=== PATIENT | male | born 1955 | race Caucasian/White ===

== ENCOUNTER 2016-11-10 12:22 | Emergency (ER) | payer MEDICARE, MEDICAID ==
[~2016-11-10] VITALS: Ht 175.3 cm; Wt 70.0 kg
[~2016-11-10 12:22] MED LIST: DICLOXACILLIN; SIMVASTATIN; [UNRECOGNIZED DRUG - OTHER]
[2016-11-10 13:04] LABS: BASOPHILS % 0.5 % (0.0-2.0); EOSINOPHILS % 0.8 % (0.0-5.0); HEMATOCRIT. 41.2 % (42.0-52.0); HEMOGLOBIN. 13.6 g/dL (14.0-18.0); LYMPHOCYTES % 8.5 % (20.0-50.0); MEAN CORPUSCULAR HGB CONC 33.1 g/dL (31.0-37.0); MEAN CORPUSCULAR VOLUME 87.8 fL (80.0-94.0); MEAN PLATELET VOLUME 7.8 fl (7.4-10.4); NEUTROPHILS % 83.2 % (40.0-76.0); PLATELET 279 x1000/uL (130-400); RED BLOOD CELL COUNT 4.69 mill/uL (4.7-6.1); RED CELL DISTRIBUTION WIDTH 13.1 % (11.6-14.6); WHITE BLOOD COUNT 11.1 x1000/uL (4.5-11.0)
[2016-11-10 13:12] LABS: INR 1.1; PROTHROMBIN TIME 11.8 sec
[2016-11-10 13:20] LABS: ALANINE AMINOTRANSFERASE 24 IU/L (13-61); ALBUMIN 3.6 g/dL (3.4-5.0); ANION GAP 15; CARBON DIOXIDE 23 mEq/L (21-32); CHLORIDE 107 mEq/L (98-107); INDEX HEMOLYSI 1 (1-3); INDEX ICTERIC 1 (1-4); INDEX LIPEMIC 1 (1-3); UREA NITROGEN BLOOD 24 mg/dL (7-21); eGFR 56 mL/min (>60)
[2016-11-10] MEDS ORDERED: ACETAMINOPHEN WITH CODEINE 300/30MG TABLET PO ONE (13:45)
[2016-11-10] MEDS ORDERED: LIDOCAINE HCL 1% 20ML VIAL (Pyxis) INJ MC ONE (15:00)
[2016-11-10] MEDS ORDERED: TETANUS, DIPHTHERIA, PERTUSSIS VAC/PF 0.5ML (>7YR OLD) IM ONE (15:00)
[2016-11-10 20:00] VITALS: BP 136/77
== END 2016-11-10 21:00 | disposition home or self-care (01) ==
LOC: ER 12:38
DX: S01.01XA Laceration without foreign body of scalp, initial encounter (principal); S00.83XA Contusion of other part of head, initial encounter; X95.9XXA Assault by unspecified firearm discharge, initial encounter; Y93.89 Activity, other specified; Y92.9 Unspecified place or not applicable; Y99.8 Other external cause status
CPT/HCPCS: 12001; 36415; 70450; 70486; 71010; 73590; 80053; 85025; 85610; 90471; 90715; 99285; J3490

== ENCOUNTER 2016-11-26 06:46 | Emergency (ER) | payer MEDICARE, MEDICAID ==
[~2016-11-26] VITALS: Ht 172.7 cm; Wt 77.0 kg
[2016-11-26] MEDS ORDERED: TETANUS, DIPHTHERIA, PERTUSSIS VAC/PF 0.5ML (>7YR OLD) IM ONE (07:45)
[2016-11-26 08:13] LABS: BASOPHILS % 0.8 % (0.0-2.0); EOSINOPHILS % 2.4 % (0.0-5.0); HEMATOCRIT. 39.2 % (42.0-52.0); HEMOGLOBIN. 13.3 g/dL (14.0-18.0); MEAN CORPUSCULAR HEMOGLOBIN 29.5 pg (28.0-32.0); MEAN CORPUSCULAR HGB CONC 33.8 g/dL (31.0-37.0); MEAN CORPUSCULAR VOLUME 87.4 fL (80.0-94.0); MEAN PLATELET VOLUME 7.4 fl (7.4-10.4); MONOCYTES % 8.6 % (2.0-8.0); NEUTROPHILS % 74.2 % (40.0-76.0); PLATELET 297 x1000/uL (130-400); RED BLOOD CELL COUNT 4.49 mill/uL (4.7-6.1); RED CELL DISTRIBUTION WIDTH 13.2 % (11.6-14.6); WHITE BLOOD COUNT 7.2 x1000/uL (4.5-11.0)
[2016-11-26 08:20] LABS: INR 1.1; PROTHROMBIN TIME 10.9 sec
[2016-11-26 08:21] LABS: CHLORIDE 105 mEq/L (98-107); INDEX HEMOLYSI 1 (1-3); INDEX ICTERIC 1 (1-4); INDEX LIPEMIC 1 (1-3)
[2016-11-26 08:22] LABS: ALBUMIN 3.4 g/dL (3.4-5.0); ANION GAP 10; CALCIUM 8.1 mg/dL (8.5-10.1); CARBON DIOXIDE 28 mEq/L (21-32); UREA NITROGEN BLOOD 19 mg/dL (7-21)
[2016-11-26 08:30] LABS: ALANINE AMINOTRANSFERASE 29 IU/L (13-61); CREATINE KINASE 139 IU/L (39-308); ETHANOL BLOOD < 10 mg/dL; TROPONIN I < 0.02 ng/mL (0.00-0.04); eGFR > 60 mL/min (>60)
[2016-11-26 08:33] LABS: AMMONIA 35 uMol/L (<32)
[2016-11-26 09:50] LABS: BG BASE EXCESS -3.6 mmol/L (-2.0-2.0); BG CARBOXYHEMOGLOBIN 0.7 % (0.5-1.5); BG DEOXYHEMOGLOBIN 4.1 % (0.0-5.0); BG FRACTION INSPIRED OXYGEN 21; BG METHEMOGLOBIN 0.1 % (0.0-1.5); BG OXYGEN SATURATION 95.9 % (92.0-98.5); BG OXYHEMOGLOBIN 95.1 % (94.0-97.0); BG PCO2 36.7 mmHg (35.0-45.0); BG PH 7.376 (7.350-7.450); BG PO2 81.2 mmHg (75.0-100.0); BG SAMPLE SITE LEFT BRACHIAL; BG TOTAL HEMOGLOBIN 13.5 g/dL (12.0-18.0); BG VENT MODE ROOM AIR
[2016-11-26 10:45] LABS: CLARITY URINE CLOUDY (CLEAR); COLOR URINE YELLOW (YELLOW); GLUCOSE URINE NEGATIVE (NEGATIVE); KETONES URINE NEGATIVE (NEGATIVE); LEUKOCYTE ESTERASE URINE TRACE (NEGATIVE); NITRITE URINE NEGATIVE (NEGATIVE); OCCULT BLOOD URINE NEGATIVE (NEGATIVE); PH URINE 7.5 (4.5-8.0); PROTEIN URINE NEGATIVE (NEGATIVE); SPECIFIC GRAVITY URINE 1.017 (1.005-1.030)
[2016-11-26 11:11] LABS: RBC URINE NONE SEEN /hpf (0-2); SQUAMOUS EPITHELIAL CELL URINE NONE SEEN /lpf (RARE/1+); WBC URINE 0-2 /hpf (0-2)
[2016-11-26 11:12] LABS: AMORPHOUS SEDIMENT URINE 1+ /lpf; BACTERIA URINE 2+
[2016-11-26 11:25] LABS: *AMPHETAMINES SCREEN URINE PRESUMTIVE POSITIVE (NEGATIVE); *BARBITURATES SCREEN URINE NEGATIVE (NEGATIVE); *BENZODIAZEPINES SCREEN URINE NEGATIVE (NEGATIVE); *COCAINE SCREEN URINE NEGATIVE (NEGATIVE); CANNABINOID URINE SCREEN NEGATIVE (NEGATIVE); ECSTASY MDMA SCREEN URINE NEGATIVE (NEGATIVE); METHADONE URINE SCREEN NEGATIVE (NEGATIVE); OPIATES URINE SCREEN NEGATIVE (NEGATIVE); PHENCYCLIDINE URINE SCREEN NEGATIVE (NEGATIVE)
[2016-11-26 12:00] VITALS: BP 145/83
== END 2016-11-26 14:30 | disposition left against medical advice (07) ==
LOC: ER 06:54
DX: T43.621A Poisoning by amphetamines, accidental (unintentional), initial encounter (principal); S00.81XA Abrasion of other part of head, initial encounter; G92 Toxic encephalopathy; V47.0XXA Car driver injured in collision with fixed or stationary object in nontraffic accident, initial encounter; Y93.89 Activity, other specified; Y92.488 Other paved roadways as the place of occurrence of the external cause
CPT/HCPCS: 36415; 36600; 70450; 71010; 72125; 80053; 80305; 81001; 82140; 82375; 82550; 82805; 82962; 83605; 84443; 84484; 85025; 85610; 86850; 86900; 86901; 90471; 90715; 99291; G0482; J7120; A4315

== ENCOUNTER 2019-04-06 11:43 | Emergency (ER) | payer BC, MEDICAID ==
[~2019-04-06] VITALS: Ht 175.3 cm; Wt 75.0 kg
[2019-04-06] MEDS ORDERED: TETANUS, DIPHTHERIA, PERTUSSIS VAC/PF 0.5ML (>7YR OLD) IM ONE (13:00)
[2019-04-06 16:26] VITALS: BP 156/88
== END 2019-04-06 17:04 | disposition home or self-care (01) ==
LOC: ER 11:47
DX: S01.01XA Laceration without foreign body of scalp, initial encounter (principal); S50.812A Abrasion of left forearm, initial encounter; Y08.89XA Assault by other specified means, initial encounter; Y93.89 Activity, other specified; Y92.89 Other specified places as the place of occurrence of the external cause; Y99.8 Other external cause status
CPT/HCPCS: 12001; 73090; 90471; 90715; 99283

== ENCOUNTER 2019-04-06 17:56 | Emergency (ER) | payer MEDICARE, MEDICAID ==
[~2019-04-06] VITALS: Ht 172.7 cm; Wt 85.0 kg
[2019-04-06] MEDS ORDERED: ACETAMINOPHEN 325MG TABLET PO STA (20:03)
[2019-04-06] MEDS ORDERED: ONDANSETRON 4MG ODT PO STA (20:03)
[2019-04-06] MEDS ORDERED: NALOXONE HCL 0.4 MG/ML 1ML VIAL IV ONE (23:45)
[2019-04-07 00:02] LABS: BASOPHILS % 0.6 % (0.0-2.0); CHLORIDE 106 mEq/L (98-107); EOSINOPHILS % 1.8 % (0.0-5.0); HEMATOCRIT. 39.8 % (42.0-52.0); HEMOGLOBIN. 13.5 g/dL (14.0-18.0); LYMPHOCYTES % 20.2 % (20.0-50.0); MEAN CORPUSCULAR HEMOGLOBIN 31.2 pg (28.0-32.0); MEAN CORPUSCULAR VOLUME 91.9 fL (80.0-94.0); MEAN PLATELET VOLUME 7.8 fl (7.4-10.4); MONOCYTES % 11.3 % (2.0-8.0); NEUTROPHILS % 66.1 % (40.0-76.0); PLATELET 243 x1000/uL (130-400); RED BLOOD CELL COUNT 4.33 mill/uL (4.7-6.1); RED CELL DISTRIBUTION WIDTH 13.2 % (11.6-14.6)
[2019-04-07 00:05] LABS: ETHANOL BLOOD < 10 mg/dL
[2019-04-07 01:40] LABS: CLARITY URINE CLEAR (CLEAR); COLOR URINE YELLOW (YELLOW); KETONES URINE TRACE (NEGATIVE); LEUKOCYTE ESTERASE URINE NEGATIVE (NEGATIVE); NITRITE URINE NEGATIVE (NEGATIVE); OCCULT BLOOD URINE NEGATIVE (NEGATIVE); PH URINE 6.5 (4.5-8.0); PROTEIN URINE NEGATIVE (NEGATIVE); SPECIFIC GRAVITY URINE 1.025 (1.005-1.030)
[2019-04-07 01:50] LABS: *AMPHETAMINES SCREEN URINE PRESUMTIVE POSITIVE (NEGATIVE); *BARBITURATES SCREEN URINE NEGATIVE (NEGATIVE); *BENZODIAZEPINES SCREEN URINE NEGATIVE (NEGATIVE); *COCAINE SCREEN URINE NEGATIVE (NEGATIVE); METHADONE URINE SCREEN NEGATIVE (NEGATIVE); OPIATES URINE SCREEN NEGATIVE (NEGATIVE)
[2019-04-07 01:51] LABS: CANNABINOID URINE SCREEN NEGATIVE (NEGATIVE); PHENCYCLIDINE URINE SCREEN NEGATIVE (NEGATIVE)
[2019-04-07] MEDS ORDERED: SODIUM CHLORIDE 0.9% 1,000 ML IV ONE (06:00)
[2019-04-07] MEDS ORDERED: ACETAMINOPHEN 500MG TABLET PO ONE (06:00)
[2019-04-07 08:45] VITALS: BP 142/86
== END 2019-04-07 08:52 | disposition home or self-care (01) ==
LOC: ER 17:56 → CANBEDREQ 04-07 02:53 → ER 04-07 08:52
DX: S00.83XA Contusion of other part of head, initial encounter (principal); F15.129 Other stimulant abuse with intoxication, unspecified; F11.129 Opioid abuse with intoxication, unspecified; Y00.XXXA Assault by blunt object, initial encounter; Y93.89 Activity, other specified; Y92.89 Other specified places as the place of occurrence of the external cause
CPT/HCPCS: 36415; 70450; 70486; 80053; 80305; 80320; 81003; 85025; 96374; 99284; J2310; J7030; Q0162; G0480

== ENCOUNTER 2019-05-22 03:55 | Emergency (ER) | payer MEDICARE, MEDICAID ==
[~2019-05-22] VITALS: Ht 167.6 cm; Wt 75.0 kg
[2019-05-22] MEDS ORDERED: SODIUM CHLORIDE 0.9% 1,000 ML IV ONE (04:19)
[2019-05-22] MEDS ORDERED: TETANUS, DIPHTHERIA, PERTUSSIS VAC/PF 0.5ML (>7YR OLD) IM ONE (04:30)
[2019-05-22] MEDS ORDERED: LIDOCAINE 1%/EPI 1:100,000 10 ML VIAL IJ ONE (06:45)
[2019-05-22] MEDS ORDERED: BACITRACIN ZINC OINT UDPKT TOP ONE (06:45)
[2019-05-22] MEDS ORDERED: LIDOCAINE HCL/PF 1% 10 MG/ML 5ML VIAL IJ ONE (06:45)
[2019-05-22] MEDS ORDERED: LIDOCAINE HCL/EPINEPHRINE 1%-EPI 1:100,000 20 ML VIAL MC NR (07:00)
[2019-05-22 08:51] VITALS: BP 162/82
== END 2019-05-22 08:59 | disposition home or self-care (01) ==
LOC: ER 03:55
DX: S01.01XA Laceration without foreign body of scalp, initial encounter (principal); S51.812A Laceration without foreign body of left forearm, initial encounter; F15.10 Other stimulant abuse, uncomplicated; Z98.890 Other specified postprocedural states; X99.8XXA Assault by other sharp object, initial encounter; Y93.89 Activity, other specified; Y92.488 Other paved roadways as the place of occurrence of the external cause
CPT/HCPCS: 12002; 12013; 70450; 71045; 72125; 73090; 90471; 90715; 99284; J3490; J7030

== ENCOUNTER 2019-06-20 17:37 | Emergency (ER) | payer MEDICARE, MEDICAID ==
[~2019-06-20] VITALS: Ht 167.6 cm; Wt 74.0 kg
[2019-06-20] MEDS ORDERED: OXYMETAZOLINE HCL NASAL SPRAY 15ML BOTHNSTRLS ONE (18:30)
[2019-06-20] MEDS ORDERED: SILVER NITRATE APPLICATOR STICK TOP ONE (21:00)
[2019-06-20] MEDS ORDERED: TRANEXAMIC ACID 1,000 MG/10 ML TP ONE (21:00)
[2019-06-20 22:46] VITALS: BP 135/89
== END 2019-06-20 23:37 | disposition home or self-care (01) ==
LOC: ER 17:37
DX: R04.0 Epistaxis (principal); F15.10 Other stimulant abuse, uncomplicated
CPT/HCPCS: 99284

== ENCOUNTER 2019-08-03 03:58 | Emergency (ER) | payer MEDICARE, MEDICAID ==
[~2019-08-03] VITALS: Ht 160 cm; Wt 76.0 kg
[2019-08-03 10:18] VITALS: BP 152/95
== END 2019-08-03 10:20 | disposition home or self-care (01) ==
LOC: ER 05:10
DX: R60.0 Localized edema (principal); M79.662 Pain in left lower leg; M79.661 Pain in right lower leg; Z98.890 Other specified postprocedural states
CPT/HCPCS: 93970; 99284

== ENCOUNTER 2019-08-10 16:17 | Emergency (ER) | payer MEDICARE, MEDICAID ==
[~2019-08-10] VITALS: Ht 165.1 cm; Wt 66.0 kg
[2019-08-10 16:22] VITALS: BP 140/80
[2019-08-10] MEDS ORDERED: ACETAMINOPHEN 325MG TABLET PO STA (20:13)
[2019-08-10] MEDS ORDERED: CEFTRIAXONE 1 G PREMIX 50 ML IV ONE (20:30)
[2019-08-10 21:59] LABS: BASOPHILS % 0.8 % (0.0-2.0); EOSINOPHILS % 2.2 % (0.0-5.0); HEMATOCRIT. 39.5 % (42.0-52.0); LYMPHOCYTES % 16.3 % (20.0-50.0); MEAN CORPUSCULAR HEMOGLOBIN 29.7 pg (28.0-32.0); MONOCYTES % 11.5 % (2.0-8.0); NEUTROPHILS % 69.2 % (40.0-76.0); PLATELET 306 x1000/uL (130-400); RED BLOOD CELL COUNT 4.39 mill/uL (4.7-6.1); RED CELL DISTRIBUTION WIDTH 12.8 % (11.6-14.6)
[2019-08-10 22:03] LABS: CHLORIDE 105 mEq/L (98-107)
[2019-08-10 22:07] LABS: ETHANOL BLOOD < 10 mg/dL
[2019-08-10] MEDS ORDERED: FUROSEMIDE 40MG/4ML VIAL IVP ONE (22:30)
== END 2019-08-11 01:31 | disposition home or self-care (01) ==
LOC: ER 16:17
DX: L03.116 Cellulitis of left lower limb (principal); L03.115 Cellulitis of right lower limb; I10 Essential (primary) hypertension
CPT/HCPCS: 36415; 71045; 80053; 80320; 83880; 85025; 96365; 96375; 99284; J0696; J1940; G0480